=== PATIENT | female | born 1980 | race Caucasian/White ===

== ENCOUNTER → 2020-01-01 14:08 | Outpatient (BNVA) | payer OTHER, SELFPAY | PROVIDERS: Family Provider Family Medicine; PCP Family Medicine; Referring Provider Nurse Practitioner Women's Health; Visit Provider Nurse Practitioner Women's Health | DX: Z30.9 Encounter for contraceptive management, unspecified (principal) | CPT/HCPCS: 81025 ==

== ENCOUNTER → 2020-03-06 13:59 | Outpatient (BNVA) | payer OTHER, SELFPAY | PROVIDERS: Family Provider Family Medicine; PCP Family Medicine; Visit Provider Nurse Practitioner Women's Health | DX: Z01.419 Encounter for gynecological examination (general) (routine) without abnormal findings (principal); Z30.42 Encounter for surveillance of injectable contraceptive; N93.9 Abnormal uterine and vaginal bleeding, unspecified | CPT/HCPCS: 88175 ==

== ENCOUNTER → 2020-09-16 11:16 | Outpatient (BNVA) | payer BC, SELFPAY | PROVIDERS: Family Provider Family Medicine; PCP Family Medicine; Visit Provider Nurse Practitioner Family | DX: Z20.828 Contact with and (suspected) exposure to other viral communicable diseases (principal); J06.9 Acute upper respiratory infection, unspecified | CPT/HCPCS: 87635 ==

== ENCOUNTER 2021-03-19 08:18 | Outpatient (CLI) | payer BC, SELFPAY ==
--- NOTE | 2021-03-19 08:30 | MM_ITS ---
WS: [id number] SCREENING DIGITAL MAMMOGRAM WITH CAD HISTORY: Z12.39 - Encounter for other screening for malignant neoplasm... COMPARISON: None available. Bilateral CC and MLO views submitted. Computer aided detection analyzed. Breast composition: There are scattered areas of fibroglandular density. Ovoid asymmetry in the centr al RIGHT breast seen best on the CC projection measures 14 mm. This may be inferior to the nipple on the lateral projection. Otherwise no suspicious masses or calcifications. MM/[place] [id number] IMPRESSION: BI-RADS: 0-Incomplete: Need additional imaging evaluation FOLLOW UP: Need Additional Imaging RIGHT breast: Spot compression views (CC and MLO). True ML. Ultrasound to follo w if abnormality persists.
== END 2021-03-19 08:19 | disposition home or self-care (01) ==
LOC: RADSHAW 08:19
PROVIDERS: PCP Family Medicine; Visit Provider Nurse Practitioner Women's Health
DX: Z12.31 Encounter for screening mammogram for malignant neoplasm of breast (principal)
CPT/HCPCS: 77067

== ENCOUNTER 2021-04-23 07:43 | Outpatient (CLI) | payer BC, SELFPAY ==
--- NOTE | 2021-04-23 08:00 | MM_ITS ---
WS: [id number] Right breast diagnostic digital mammogram, 04/23/2021 Clinical Data: R92.8 - Other abnormal and inconclusive findings on diagn... Comparison: 03/19/2021. Findings: The compression cc views of the right breast show an ovoid density measuring 0.7 cm in the retroareol ar region, approximately 4.5 cm from the nipple. There is also an irregular density measuring 1.0 cm in the medial aspect of the right breast approximately 5 cm from the nipple. On the ML view of the r ight breast the irregular density may be in the inferior aspect of the right breast. The ovoid densit y is not definitely seen but may be directly posterior to the nipple. MM/[place] [id number] Impression: 1. Ovoid density, 0.7 cm in the retroareolar region approximately 4.5 cm from t he nipple. 2. Irregular density measuring 1.0 cm in the medial aspect and possible inferio r aspect of right breast approximate 5 cm from the nipple. 3. Right breast ultrasound will be performed. BIRADS: 4-Suspicious Finding-Biopsy Should Be Considered FOLLOW UP: See Report The CAD power checker was used.
--- NOTE | 2021-04-23 08:45 | US_ITS ---
WS: [id number] I breast ultrasound, 04/23/2021 Clinical Data: R92.8 - Other abnormal and inconclusive findings on diagn... Comparison: Mammogram, 04/23/2021 Findings: There is an irregular lesion which shows a mixed echotexture and septations in the 7:00 position 3 cm from the nipple. It measures approximately 0.54 x 0.74 x 0.77 cm. There is a simple cyst at the 12:00 position 1 cm from the nipple measuring 0.29 x 0.36 x 0.59 cm. There is also a cyst small duct seen at the 12:00 position 2 cm from the nipple. US/US breast RT limited* [id number] Impression: 1. Irregular lesion with mixed echotexture in the 7:00 position 3 cm from the n ipple in the right breast 2. Consider biopsy by ultrasound. 3. Small cyst and small duct at 12:00 position in right breast BIRADS: 4-Suspicious Finding-Biopsy Should Be Considered FOLLOW UP: US Guided Biopsy Recommended
== END 2021-04-23 07:44 | disposition home or self-care (01) ==
PROVIDERS: PCP Family Medicine; Visit Provider Nurse Practitioner Women's Health
DX: R92.8 Other abnormal and inconclusive findings on diagnostic imaging of breast (principal); N60.01 Solitary cyst of right breast; N64.89 Other specified disorders of breast
CPT/HCPCS: 76642; 77065

== ENCOUNTER 2021-04-30 12:25 | Outpatient (CLI) | payer BC, SELFPAY ==
--- NOTE | 2021-04-30 13:00 | US_ITS ---
WS: [id number] ULTRASOUND-GUIDED RIGHT BREAST BIOPSY CLINICAL INFORMATION: R92.8 - Other abnormal and inconclusive findings on diagn... COMPARISON: None. FINDINGS: The procedure including risks, benefits, and complications were discussed with the patient who agreed to proceed. Using sterile technique patient was prepped and draped in the usual sterile fashion. Aft er 1% lidocaine utilizing real-time ultrasound guidance 5 14-gauge cores were obtained of the right b reast lesion at the 7 o'clock position. Subsequently a titanium clip was placed in the biopsy cavity. No immediate complications. PATHOLOGY DEMONSTRATES Breast, right, 7 o'clock, ultrasound-guided biopsy: -Benign fibrocystic changes with fibro-adenomatoid like changes. -Duct ectasia with focal columnar cell hyperplasia. -No malignancy identified. US/[place] [id number] IMPRESSION: 1. Uncomplicated ultrasound-guided right breast biopsy. 2. The pathology demonstrates fibrocystic and benign fibroadenomatoid changes. BI-RADS: 2-Benign FOLLOW UP: 1 Year Follow-up RECOMMEND RETURN TO ANNUAL SCREENING MAMMOGRAPHY.
== END 2021-04-30 12:26 | disposition home or self-care (01) ==
PROVIDERS: PCP Family Medicine; Visit Provider Nurse Practitioner Women's Health
DX: R92.8 Other abnormal and inconclusive findings on diagnostic imaging of breast (principal); N63.13 Unspecified lump in the right breast, lower outer quadrant; N60.41 Mammary duct ectasia of right breast
CPT/HCPCS: 19083; 88305

== ENCOUNTER 2021-07-14 07:58 | Emergency (ER) | payer BC, SELFPAY ==
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
[2021-07-14 08:09] VITALS: BP 153/106; BP 160/109; PULSE 71; RESP 14; TEMP 36.7; O2SAT 98; BMI 36.6
--- NOTE | 2021-07-14 08:53 | CT_ITS ---
WS: [id number] CT HEAD NONCONTRAST HISTORY: headache with vision changes TECHNIQUE: Contiguous axial imaging performed through the brain in 2.5 mm imaging. Bone and soft tiss ue windows. Sagittal and coronal reformats reviewed. All CT scans at [facility] use at least one of these dose optimization techniques: automated exposure control; mA and/or kV adjustment per pa tient size (includes targeted exams where dose is matched to clinical indication); or iterative recon struction. DLP: 781.64 mGy.cm COMPARISON: None available. No acute intracranial hemorrhage, midline shift or mass effect. No atrophy or prior infarcts or herniation. Ventricles: Normal size with no hydrocephalus. No inferior displacement of cerebellar tonsils. Dense calcification along the falx over the vertex is bilateral. Not an acute finding. Paranasal sinuses: As visualized are clear. Mastoid air cells: Well pneumatized. Calvarium and scalp: Skull is intact with no soft tissue edema or swelling. CT/CT head wo con* [id number] IMPRESSION: Negative head CT.
[2021-07-14 09:18] VITALS: BP 200/112; PULSE 68; RESP 20; O2SAT 97
[2021-07-14 09:21] VITALS: PULSE 70
[2021-07-14 09:25] LABS: Basophils # 0.1 10^3/uL (0.0-0.1); Basophils % 1.1 %; Eosinophils # 0.2 10^3/uL (0.0-0.8); Eosinophils % 3.4 %; Hematocrit 46.6 % (37.0-47.0); Hemoglobin 15.2 g/dL (11.5-15.3); Lymphocytes # 1.7 10^3/uL (0.8-4.8); Lymphocytes % 29.7 %; Mean Corpuscular HGB Conc 32.6 g/dL (30.0-36.0); Mean Corpuscular Hemoglobin 29.9 pg (28.0-34.0); Mean Corpuscular Volume 91.7 fl (81-99); Mean Platelet Volume 10.2 fL (7.4-10.4); Monocytes # 0.4 10^3/uL (0.2-0.9); Monocytes % 7.8 %; Neutrophils # 3.25 10^3/uL (1.8-7.7); Neutrophils % 57.8 %; Nucleated Red Blood Cells % 0 %; Platelet Count 280 10^3/cmm (130-400); Red Blood Count 5.08 10^6/uL (4.1-5.3); Red Cell Distribution Width 13.9 % (12.1-15.1); White Blood Count 5.6 10^3/uL (4.0-10.0)
[2021-07-14] MEDS: ketorolac 30 mg/mL INJ IVP (09:50)
[2021-07-14 09:53] LABS: Alanine Aminotransferase 20 U/L (0-33); Albumin Level 4.3 g/dL (3.5-5.2); Alkaline Phosphatase 95 IU/L (35-105); Aspartate Amino Transferase 18 U/L (0-32); Blood Urea Nitrogen 13 mg/dL (6-20); Carbon Dioxide 23 mmol/L (22-29); Chloride 106 mmol/L (98-107); Globulin 3.8 g/dL (1.3-4.6); Glomerular Filtration Rate 79.4 mL/min (90-130); Glucose 89 mg/dL (65-115); Osmolality Calculated 290 mOsm/kg (285-295); Sodium 140 mmol/L (136-145); Total Bilirubin 0.4 mg/dL (0.15-1.2); Total Protein 8.1 g/dL (6.6-8.7)
[2021-07-14] MEDS: promethazine 25 mg/mL SDV 1 mL IM (09:54)
[2021-07-14 09:55] VITALS: BP 152/92
[2021-07-14] MEDS: diphenhydrAMINE 50 mg/mL SDV 1mL 25 MG IVP (09:56)
[2021-07-14 10:01] VITALS: BP 187/99
[2021-07-14] MEDS: amlodipine 5 mg Tablet PO (10:03)
[2021-07-14] MEDS: valproic acid inj 500 MG in sodium chloride 0.9% 50 ML 55 MG IV (10:10)
[2021-07-14] MEDS: hyDRALAzine 20 mg/mL INJ 1 mL 10 MG IVP (10:15)
[2021-07-14] MEDS: metoprolol tartrate 1 mg/1 mL SDV 5 mL 2.5 MG IVP (11:02)
[2021-07-14 11:48] VITALS: BP 136/78; PULSE 77; RESP 16; O2SAT 98
== END 2021-07-14 11:48 | disposition home or self-care (01) ==
PROVIDERS: Emergency Provider Family Medicine; PCP Family Medicine
DX: R51.9 Headache, unspecified (principal); I10 Essential (primary) hypertension
CPT/HCPCS: 70450; 80053; 85025; 96365; 96366; 96372; 96375; 99284; J0360; J1200; J1885; J2550; J3490

== ENCOUNTER → 2021-08-19 10:59 | Outpatient (BNVA) | payer BC, SELFPAY | PROVIDERS: PCP Family Medicine; Visit Provider Family Medicine | DX: I10 Essential (primary) hypertension (principal); G43.111 Migraine with aura, intractable, with status migrainosus | CPT/HCPCS: 80061; 82043; 82670; 83001; 84443 ==

== ENCOUNTER → 2021-10-20 11:35 | Outpatient (BNVA) | payer BC, SELFPAY | PROVIDERS: PCP Family Medicine; Visit Provider Nurse Practitioner Women's Health | DX: Z30.42 Encounter for surveillance of injectable contraceptive (principal) | CPT/HCPCS: 81025 ==

== ENCOUNTER → 2022-02-18 11:50 | Outpatient (BNVA) | payer BC, SELFPAY | PROVIDERS: PCP Family Medicine; Visit Provider Nurse Practitioner Women's Health | DX: Z30.9 Encounter for contraceptive management, unspecified (principal); N92.6 Irregular menstruation, unspecified | CPT/HCPCS: 81025 ==

== ENCOUNTER 2022-05-20 15:09 | Outpatient (CLI) | payer BC, SELFPAY ==
--- NOTE | 2022-05-20 15:26 | MM_ITS ---
WS: [id number] BILATERAL 3D TOMOSYNTHESIS DIGITAL SCREENING MAMMOGRAPHY WITH CAD CLINICAL INFORMATION: Z12.39 - Encounter for other screening for malignant neop... HISTORY: Screening mammogram. No current complaints. COMPARISON: April 23, 2021 TECHNIQUE: Bilateral CC and MLO views. FINDINGS: Scattered fibroglandular densities bilaterally. Stable ovoid nodule lower outer RIGHT breast with adj acent biopsy clip. Previous pathology demonstrated fibroadenoma. This is stable compared to 2020. No suspicious focal mass, asymmetry, calcifications, or architectural distortion. No evidence of maligna ncy. MM/[place] [id number] IMPRESSION: BI-RADS: 2-Benign FOLLOW UP: 1 Year Follow-up Recommend return to annual screening mammography.
== END 2022-05-20 15:10 | disposition home or self-care (01) ==
LOC: RAD 15:15
PROVIDERS: PCP Family Medicine; Visit Provider Family Medicine
DX: Z12.31 Encounter for screening mammogram for malignant neoplasm of breast (principal)
CPT/HCPCS: 77063; 77067

== ENCOUNTER → 2022-10-14 08:34 | Outpatient (BNVA) | payer BC, SELFPAY | PROVIDERS: PCP Family Medicine; Visit Provider Family Medicine | DX: Z23 Encounter for immunization (principal); I10 Essential (primary) hypertension; G43.111 Migraine with aura, intractable, with status migrainosus | CPT/HCPCS: 80053; 80061; 82043; 85025 ==

== ENCOUNTER 2023-06-14 09:04 | Outpatient (CLI) | payer BC, SELFPAY ==
--- NOTE | 2023-06-14 09:12 | MM_ITS ---
WS: [id number] SCREENING DIGITAL BREAST TOMOSYNTHESIS MAMMOGRAM WITH CAD HISTORY: Z12.31 - Encounter for screening mammogram for malignant ... COMPARISON: 05/20/2022 and 04/23/2021 Bilateral CC and MLO with tomosynthesis and synthetic mammography submitted. Computer aided detection analyzed. Breast composition: There are scattered areas of fibroglandular density. There is a new ovoid 8 mm ma ss in the anterior RIGHT breast near 11-12 o'clock. Stable in the inferior breast which has a biopsy clip and is stable. LEFT breast is negative. IMPRESSION: MM/[place] [id number] BI-RADS: 0-Incomplete: Need additional imaging evaluation FOLLOW UP: Need Additional Imaging RIGHT breast: Spot compression views (CC and MLO). True ML. Ultrasound to follo w if abnormality persists.
== END 2023-06-14 09:05 | disposition home or self-care (01) ==
LOC: MOBLMAM 09:10
PROVIDERS: PCP Family Medicine; Visit Provider Nurse Practitioner Women's Health
DX: Z12.31 Encounter for screening mammogram for malignant neoplasm of breast (principal)
CPT/HCPCS: 77063; 77067

== ENCOUNTER 2023-07-04 09:32 | Outpatient (CLI) | payer BC, SELFPAY ==
--- NOTE | 2023-07-04 09:53 | MM_ITS ---
WS: [id number] ADDITIONAL VIEWS RIGHT MAMMOGRAM WITH DIGITAL BREAST TOMOSYNTHESIS. RIGHT BREAST ULTRASOUND HISTORY: Abnormal findings on screening mammogram. COMPARISON: 06/14/2023 and 05/20/2022 RIGHT MAMMOGRAM: Spot compression views and true ML with digital breast tomosynthesis and SM. Ovoid 8.5 mm mass persists in the anterior RIGHT breast towards 10:00. Ultrasound to follow RIGHT BREAST ULTRASOUND 2-D and color Doppler imaging submitted. There is a simple cyst in the RIGHT breast at 10:00, 1 cm from the nipple which corresponds to the ma mmographic abnormality. This cyst measures 8 x 6 x 5 mm. There is an additional cyst at 9:00, 1 cm fr om the nipple measuring 5 x 8 x 4 mm. IMPRESSION: MM/[place] [id number] BI-RADS: 2-Benign FOLLOW UP: 1 Year Follow-up
--- NOTE | 2023-07-04 10:00 | US_ITS ---
WS: [id number] ADDITIONAL VIEWS RIGHT MAMMOGRAM WITH DIGITAL BREAST TOMOSYNTHESIS. RIGHT BREAST ULTRASOUND HISTORY: Abnormal findings on screening mammogram. COMPARISON: 06/14/2023 and 05/20/2022 RIGHT MAMMOGRAM: Spot compression views and true ML with digital breast tomosynthesis and SM. Ovoid 8.5 mm mass persists in the anterior RIGHT breast towards 10:00. Ultrasound to follow RIGHT BREAST ULTRASOUND 2-D and color Doppler imaging submitted. There is a simple cyst in the RIGHT breast at 10:00, 1 cm from the nipple which corresponds to the ma mmographic abnormality. This cyst measures 8 x 6 x 5 mm. There is an additional cyst at 9:00, 1 cm fr om the nipple measuring 5 x 8 x 4 mm. IMPRESSION: US/US breast RT limited* [id number] BI-RADS: 2-Benign FOLLOW UP: 1 Year Follow-up
== END 2023-07-04 09:33 | disposition home or self-care (01) ==
PROVIDERS: PCP Family Medicine; Visit Provider Nurse Practitioner Women's Health
DX: R92.8 Other abnormal and inconclusive findings on diagnostic imaging of breast (principal)
CPT/HCPCS: 76642; 77061; G0279

== ENCOUNTER → 2023-11-06 16:10 | Outpatient (BNVA) | payer BC, SELFPAY | PROVIDERS: PCP Family Medicine; Visit Provider Registered Nurse Neonatal Intensive Care | DX: R50.9 Fever, unspecified (principal) | CPT/HCPCS: 87400; 87426 ==

== ENCOUNTER → 2023-11-24 13:11 | Outpatient (BNVA) | payer BC, SELFPAY | PROVIDERS: PCP Family Medicine; Visit Provider Nurse Practitioner Women's Health | DX: Z30.42 Encounter for surveillance of injectable contraceptive (principal) | CPT/HCPCS: 81025 ==

== ENCOUNTER → 2024-04-02 11:33 | Outpatient (BNVA) | payer BC, SELFPAY | PROVIDERS: PCP Family Medicine; Visit Provider Nurse Practitioner Women's Health | DX: Z30.42 Encounter for surveillance of injectable contraceptive (principal) | CPT/HCPCS: 81025 ==

== ENCOUNTER → 2024-09-20 08:43 | Outpatient (BNVA) | payer BC, SELFPAY | PROVIDERS: PCP Family Medicine; Visit Provider Family Medicine | DX: Z00.00 Encounter for general adult medical examination without abnormal findings (principal) | CPT/HCPCS: 85025 ==

== ENCOUNTER → 2024-10-16 08:59 | Outpatient (BNVA) | payer BC, SELFPAY | PROVIDERS: PCP Family Medicine; Visit Provider Podiatrist Foot & Ankle Surgery | DX: M79.671 Pain in right foot (principal); M72.2 Plantar fascial fibromatosis; M21.41 Flat foot [pes planus] (acquired), right foot | CPT/HCPCS: 73630 ==

== ENCOUNTER → 2024-12-13 08:34 | Outpatient (BNVA) | payer BC, SELFPAY | PROVIDERS: PCP Family Medicine; Visit Provider Family Medicine | DX: I10 Essential (primary) hypertension (principal) | CPT/HCPCS: 80053; 80061; 84443; 85025 ==

== ENCOUNTER 2025-01-10 13:30 | Outpatient (CLI) | payer BC, SELFPAY ==
--- NOTE | 2025-01-10 13:34 | XR_ITS ---
WS: [id number] Exam: XR ankle LT 2V [id number] Date/Time of Exam: 01/10/2025 1:41 PM Reason For Exam: acute left ankle / foot pain No acute fracture. Mild lateral soft tissue swelling. The ankle mortise is equidistant. XR/XR ankle LT 2V [id number] IMPRESSION: 1. Lateral soft tissue swelling-no fracture.
--- NOTE | 2025-01-10 13:34 | XR_ITS ---
WS: [id number] Exam: XR foot LT min 3V* [id number] Date/Time of Exam: 01/10/2025 1:41 PM Reason For Exam: acute left ankle / foot pain No fracture. The joints are well-maintained. No soft tissue foreign bodies. XR/XR foot LT min 3V* [id number] IMPRESSION: 1. Negative LEFT foot.
== END 2025-01-10 13:31 | disposition home or self-care (01) ==
LOC: RAD 13:30
PROVIDERS: PCP Family Medicine; Visit Provider Family Medicine
DX: M79.672 Pain in left foot (principal); R93.6 Abnormal findings on diagnostic imaging of limbs
CPT/HCPCS: 73600; 73630

== ENCOUNTER → 2025-02-04 13:24 | Outpatient (BNVA) | payer BC, SELFPAY | PROVIDERS: PCP Family Medicine; Visit Provider Family Medicine | DX: N61.1 Abscess of the breast and nipple (principal) | CPT/HCPCS: 87070; 87075; 87205 ==

== ENCOUNTER → 2025-05-27 07:20 | Day surgery (SDC) | payer BC, SELFPAY ==
[2025-05-27] VITALS (10 sets, daily range): BP systolic 119–156; BP diastolic 69–99; PULSE 54–80; RESP 14–22; TEMP 36.6–37.2; O2SAT 91–99; BMI 36.6
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
[2025-05-27 07:54] LABS: OR HCG Qualitative Urine Negative (Negative)
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
--- NOTE | 2025-05-27 10:09 | W.PM.OPSUD ---
Surgery/Procedure H&P Update DATE OF PROCEDURE: May 27, 2025 DATE H&P PERFORMED: 05/27/25 H&P UPDATE INFORMATION: I have reviewed H&P completed within last 30 days, I have examined patient prior to procedure and No changes to prior documentation PREOP DIAGNOSIS: desires permanent sterilization PLANNED PROCEDURE: Operation Date: 05/27/25 09:50 Proposed Procedures p BILATERAL Laparoscopic Salpingectomy 22988 Z30.2(Bilateral) - Elmo Escamilla MD
--- NOTE | 2025-05-27 11:10 | P.OP_ITS ---
Operative Report Date of procedure: May 27, 2025 Pre-op diagnosis: desires permanent sterilization Post-op diagnosis: same Post-op findings: Diffuse pelvic adhesions Normal right fallopian tube Left fallopian tube with scarring, only fimbria identifiable Procedure done: laparoscopic bilateral salpingectomy Implants: none Specimens removed/disposition: bilateral fallopian tube segments Surgeon: Elmo Escamilla MD Anesthesia: General Estimated blood loss (mL): 5 Complications: none Findings: see above Condition: stable Disposition: PACU Brief History: 45 y.o. desires permanent sterilization Procedure: The patient was taken to the OR and placed on the table. General endotracheal anesthesia was induced. The abdomen was then prepped and draped in the usual fashion. A 5 mm subumbilical skin incision was made. A Veress needle was placed into the abdomen. After adequate pneumoperitoneum was achieved, a 5 mm trocar with sheath was then inserted into the peritoneal cavity under direct visualization with the laparoscope. Diffuse pelvic adhesions was seen, especially in the left lower quadrant. A 5 mm trocar with sheath was placed in the left upper quadrant and one in the right mid-quadrant under direct visualization. The right fallopian tube was seen to be normal. Starting at the fimbrial end, the mesosalpinx was coagulated and cut using the Ligasure device. The right fallopian tube was excised and removed via one of the ports. This was sent to pathology. There was no bleeding seen. There was dense adhesions around the left fallopian tube. Only the fimbria and a small portion of the left fallopian tube was identifiable. The fimbria and small tubal segment was dissected and removed using the Ligasure device, and sent to pathology. No bleeding was seen. All instruments were then removed from the peritoneal cavity after the pneumoperitoneum was allowed to escape. The skin incisions were closed using 3- O chromic in subcuticular fashion. Dermabond was applied. The patient was then placed supine and awakened, taken the the PACU in good condition. Postop condition: stable EBL: 5 cc Complications: none Sponge, needles, and instruments counts correct x two
--- NOTE | 2025-05-27 14:22 | ANE.PACU2 ---
Inpatient post-anesthesia follow up: Airway intact: Yes Vital signs: Temperature 97.8 F Pulse Rate 54 Respiratory Rate 18 Blood Pressure 130/92 Pulse Oximetry 95 Oxygen Delivery Me thod Room Air Oxygen Flow Rate 8 Fraction of Inspir ed Oxygen Hydration adequate: Yes Nausea and vomiting: No Pain level: 1 Mental status: Baseline
== END | disposition home or self-care (01) ==
PROVIDERS: Student in an Organized Health Care Education/Training Program; PCP Family Medicine; Visit Provider Obstetrics & Gynecology
PROC: (CPT 58661; principal; 2025-05-27 09:40)
DX: Z30.2 Encounter for sterilization (principal); I10 Essential (primary) hypertension; N93.9 Abnormal uterine and vaginal bleeding, unspecified
CPT/HCPCS: 58661; 81025; 88302; J0131; J1100; J1200; J1885; J2250; J2405; J2704; J3010; J3490; J7030; J9999

== ENCOUNTER 2025-10-01 13:07 | Outpatient (CLI) | payer BC, SELFPAY ==
--- NOTE | 2025-10-01 13:20 | MM_ITS ---
WS: [id number] BILATERAL 3D TOMOSYNTHESIS DIGITAL SCREENING MAMMOGRAPHY WITH CAD CLINICAL INFORMATION: Z12.31 - Encounter for screening mammogram for malignant ... HISTORY: Screening mammogram. No current complaints. COMPARISON: 2022 TECHNIQUE: Bilateral CC and MLO views. FINDINGS: Scattered fibroglandular densities bilaterally. No suspicious focal mass, asymmetry, calcifications, or architectural distortion. No evidence of malignancy. Stable biopsy clip RIGHT breast with adjacent nodule. Stable nodularity LEFT breast MM/MM scr tomosynthesis [id number] IMPRESSION: DENSITY: There are scattered areas of fibroglandular density. BI-RADS: 2 - Benign. FOLLOW UP: 1 Year Follow-up Recommend return to annual screening mammography.
== END 2025-10-01 13:08 | disposition home or self-care (01) ==
LOC: RAD 13:08
PROVIDERS: PCP Family Medicine; Visit Provider Nurse Practitioner Women's Health
DX: Z12.31 Encounter for screening mammogram for malignant neoplasm of breast (principal); R92.323 Mammographic fibroglandular density, bilateral breasts; N63.20 Unspecified lump in the left breast, unspecified quadrant; N63.10 Unspecified lump in the right breast, unspecified quadrant
CPT/HCPCS: 77063; 77067